=== PATIENT | male | born 1950 | race Caucasian/White ===

== ENCOUNTER 2020-04-24 13:32 | Outpatient (CLI) | payer MEDICARE ==
[~2020-04-24] VITALS: Ht 170 cm; Wt 79.5 kg
[~2020-04-24 13:32] MED LIST: BUDE10.2 IH; FLUT15.845 NS; LEVO5TAB28 PO
== END 2020-04-24 13:33 | disposition home or self-care (01) ==
LOC: PREOP 13:32
PROVIDERS: ATTEND Surgery
DX: Z01.818 Encounter for other preprocedural examination (principal)

== ENCOUNTER 2020-04-29 08:42 | Day surgery (SDC) | payer MEDICARE, OTHER ==
[~2020-04-29] VITALS: Ht 170 cm; Wt 79.5 kg
[2020-04-29 09:00] VITALS: BP 158/96
[2020-04-29] MEDS ORDERED: MIDAZOLAM 2 MG/2 ML (VERSED) VIAL ONE (09:02)
[2020-04-29] MEDS ORDERED: PROPOFOL INJECTION 50 ML IV ONE (09:02)
[2020-04-29] MEDS ORDERED: LACTATED RINGERS 0 ML IV ONE (09:14)
--- NOTE | 2020-04-29 09:16 | Progress Note-Pre Operative ---
Pre-Operative Progress Note H&P Reviewed The H&P was reviewed, patient examined and no changes noted. Time Seen by Provider: 09:14 Date H&P Reviewed: Apr 29, 2020 Time H&P Reviewed: 09:14 Pre-Operative Diagnosis: Screening colon, hx of polyps, rectal tear MARGARITO LACY DO Apr 29, 2020 09:16
[2020-04-29] MEDS ORDERED: LACTATED RINGERS 1,000 ML IV STA (09:31)
[2020-04-29] MEDS ORDERED: LACTATED RINGERS 1,000 ML IV ONE (09:33)
[2020-04-29 10:35] VITALS: BP 111/67
--- NOTE | 2020-04-29 10:36 | Progress Note-Post Operative ---
Post-Operative Progess Note Surgeon (s)/Chief Medical Director (s) Surgeon MARGARITO LACY DO Chief Medical Director: JOSHUA Stanton Pre-Operative Diagnosis Screening colon, hx of polyps, rectal tear Post-Operative Diagnosis Diverticula Internal hemorrhoids Procedure & Operative Findings Date of Procedure 04/29/20 Procedure Performed/Findings Colonoscopy Anesthesia Type IV sedation by POND WORKER Estimated Blood Loss Estimated blood loss (mL): none Specimens/Packing Specimens Removed none MARGARITO LACY DO Apr 29, 2020 10:36
--- NOTE | 2020-04-29 10:37 | Endoscopy Discharge Instruct ---
Endo Procedure/Findings Findings 1.: Diverticulosis 2.: Internal Hemorrhoids Discharge Instructions - Activity: You might feel a little sleepy until tomorrow. This is due to the medicine you received to relax you. Until tomorrow, you should: NOT drive a car, operate machinery or power tools. NOT drink any alcoholic beverages. NOT make any important decisions or sign importortant papers. Do not return to work until tomorrow, unless otherwise instructed. Resume previous activities tomorrow. Diet: Start by taking liquids. If you tolerate liquids, advance to solid food. 1.: Colonscopy in 10 years Notify Physician - If you experience excessive bleeding, unusual abdominal pain, fever, or chest pain, contact your doctor immediately. MARGARITO LACY DO Apr 29, 2020 10:37
[2020-04-29 10:40] VITALS: BP 110/69
[2020-04-29 10:45] VITALS: BP 121/82
[2020-04-29 11:10] VITALS: BP 131/90
[2020-04-29 11:20] VITALS: BP 131/90
--- NOTE | 2020-04-29 12:50 | Anesthesia-General Post-Op ---
MAC Patient Condition Mental Status/LOC: Same as Preop Cardiovascular: Satisfactory Nausea/Vomiting: Absent Respiratory: Satisfactory Pain: Controlled Complications: Absent Post Op Complications Complications None Follow Up Care/Instructions Patient Instructions None needed. Anesthesiology Discharge Order Discharge Order Patient is doing well, no complaints, stable vital signs, no apparent adverse anesthesia problems. No complications reported per nursing. YESSENIA GREENE CRNA Apr 29, 2020 12:50
--- NOTE | 2020-04-30 02:05 | OPERATIVE REPORT ---
DATE OF SERVICE: 04/29/2020 PREOPERATIVE DIAGNOSIS: Screening with a history of polyps and complaints of rectal tear. POSTOPERATIVE DIAGNOSES: Diverticula, internal hemorrhoids and questionable healed anal fissure. PROCEDURE: Colonoscopy. SURGEON: Daniel Morrison DO DONOR SUPPORT TECHNICIAN: Devaughn Castro MS3. ANESTHESIA: IV sedation by the GRATING MACHINE OPERATOR. SPECIMENS: None. BLOOD LOSS: None. FLUIDS: Per anesthesia. POSTOPERATIVE CONDITION: Stable. INDICATION FOR PROCEDURE: The patient is a 70-year-old male who has a history of polyps. He has not had a colonoscopy in over 10 years, needs a screening. He also complains of rectal tears and states if he does not take Metamucil every day, he has bleeding. FINDINGS: The patient had some large diverticula, some very minimal internal hemorrhoids and possibly saw a healing anal fissure but did not see anything active or chronic. PROCEDURE NOTE: After informed consent was obtained, the patient was brought to the endoscopy suite, placed in bed in left lateral decubitus position. He was administered IV sedation by the GRATING MACHINE OPERATOR who then monitored his vitals the entire time, heart rate, blood pressure and pulse ox and the scope was inserted. On the way in, noted large diverticula in the sigmoid and descending colon. Pushed all the way to about 140 cm, able to get to the cecum, took a picture of appendiceal orifice, able to get into the terminal ileum, took a picture and then slowly withdrew the scope insufflating the circumferential sherman looking the cecum, up the ascending colon to the hepatic flexure, then down the transverse colon, splenic flexure, into the descending colon, down into the sigmoid and finally into the rectum, retroflexed in the rectal vault, saw some very minimal internal hemorrhoids and then removed the scope, looked externally around the anus, saw maybe some healing anal fissures, but did not see any chronic anal fissure or any active/ acute anal fissure. The patient tolerated the procedure, recovered in endoscopy suite. Job ID: [id number] DocumentID: [id number] Dictated Date: 04/29/2020 15:36:12 Thread Marker Date: 04/30/2020 02:04:30 Dictated By: DANIEL MORRISON DO MTDD
== END 2020-04-29 11:20 | disposition home or self-care (01) ==
LOC: ENDO 08:42
PROVIDERS: ATTEND Surgery
DX: Z12.11 Encounter for screening for malignant neoplasm of colon (principal); K64.8 Other hemorrhoids; K57.30 Diverticulosis of large intestine without perforation or abscess without bleeding; K62.5 Hemorrhage of anus and rectum; J45.909 Unspecified asthma, uncomplicated; Z86.010 Personal history of colon polyps